=== PATIENT | male | born 1975 | race Two or more races ===

== ENCOUNTER 2018-11-26 08:31 | Emergency (ER) | payer SELFPAY ==
[~2018-11-26] VITALS: Ht 172.7 cm; Wt 72.6 kg
[2018-11-26 08:37] VITALS: BP 168/113
--- NOTE | 2018-11-26 08:37 | NUR ---
ED Nurse Note: Pt brought in by EMS picked up from a bus. Per EMS pt states that he overdosed with PCP. Unable to asess if he is SI or wants to hurt others. Pt is uncooperative and not answering directly to questions being asked to him. Pt came in with hand cuffs but [employer] states pt is not on 5150 Hold. AAO x 1 (name) and not following commands wth no respiratory distress. Sinus tach on night monitor 120-135 HR.
--- NOTE | 2018-11-26 08:40 | NUR ---
ED Nurse Note: Belongings placed on psych locker #3.
[2018-11-26] MEDS ORDERED: LORazepam Inj 2mg/ml 1ml IV ONE (08:45)
--- NOTE | 2018-11-26 08:54 | Emergency Room Report ---
History of Present Illness General Chief Complaint: Substance Abuse Source: EMS Present Illness HPI Disclaimer: Please note that this report is being documented using DRAGON technology. This can lead to erroneous entry secondary to incorrect interpretation by the dictating instrument. HPI: 43-year-old male with unknown medical history presents for evaluation by law enforcement of aggressive behavior. The patient is brought in on restraints and is agitated. Per fire and EMS, first responders were waved down by high school business teacher as the patient was aggressive and acting erratically on the bus. He admitted to smoking crystal meth approximately 2 hours prior to law enforcement and to me. He currently denies any chest pain, shortness of breath , abdominal pain or headache. He is aware that he is in a hospital but cannot provide any significant insight into his past medical history, current medications he might be taking or anything other than smoking crystal meth prior to arrival. PMH: Could not obtain PSH: Could not obtain Allergies: Could not obtain Social Hx: Substance abuse, crystal meth Allergies: Coded Allergies: No Known Allergies (Unverified , 11/26/18) Nursing Documentation-PMH Past Medical History: No Stated History Review of Systems All Other Systems: limited - Due to clinical condition Physical Exam Vital Signs Date Time Temp Pulse Resp B/P (MAP) Pulse Ox O2 Delivery O2 Flow Rate FiO2 11/26/18 08:27 99.3 137 20 134/85 (101) 99 Room Air General: Awake, agitated, tremulous, handcuffs to gurney HEENT: Normocephalic, atraumatic. There are no scalp or face hematomas, lacerations or abrasions. No tenderness or soft tissue swelling over the facial bones. EOMI. PERRLA. No septal hematoma. No malocclusion Neck: Supple, trachea midline. Arrives without cervical collar Chest Wall: No tenderness, no deformity, no crepitus CV: Tachycardic. S1 and S2 normal. No murmur appreciated Resp: Normal work of breathing. No cough, wheezing or crackles appreciated Abd: Soft, nontender, nondistended Skin: Intact. No abrasions, laceration or rash over the exposed skin MSK: Normal tone and bulk. No obvious deformity. Moving all extremities. Ambulating without difficulty. Neuro: Awake and alert. Agitated and tremulous. Striking out at staff. Tangential thoughts. Moving all extremities. Procedures Critical Care Time Critical Care Time Total critical care time: Approximately 45 minutes Due to a high probability of clinically significant, life threatening deterioration, the patient required the highest level of preparedness to intervene emergently and I personally spent this critical care time directly and personally managing the patient. This critical care time included obtaining a history, examining the patient, pulse oximetry, ordering and reviewing studies , ordering treatments, evaluating response to treatment and updating management plan as needed, frequent reassessment and discussion with other providers as well as arranging for ultimate disposition. This critical to care time was performed to assess and manage the high probability of life-threatening deterioration that could result in multiorgan failure. This critical care time is separate from the separately billable procedures and treating other patients. Medical Decision Making Restraint Attestation I, Kaleb Meraz MD, have personally evaluated this patient. Laboratory tests have been reviewed and addressed accordingly. The patient is deemed to present a danger to themselves and/or others. This is based on the exam, history ( provided by patient, EMS/[employer]) and observed or reported behavior. Attempts for non-invasive measures have been considered and/or attempted, however, have been futile. It is in the best interest of the nursing staff, the patient, and others involved in this patient's care that behavioral restraints be applied. Patient evaluation reveals the following: Delirium, combativeness, danger to staff Diagnostic Impression: Primary Impression: Substance abuse Additional Impressions: Delirium Agitation ER Course 43-year-old male brought in for medical evaluation by emergency services for erratic behavior on the bus. The patient admits to smoking crystal meth earlier today. Differential includes but is not limited to substance abuse, infection, electrolyte abnormality. We will start broad metabolic infectious and tox work-up. Patient did require restraints on arrival but will reevaluate shortly after giving 2 mg of Ativan for sedation. Laboratory Tests Test 11/26/18 08:45 11/26/18 08:55 White Blood Count 15.7 K/UL (4.8-10.8) H Red Blood Count 5.01 M/UL (4.70-6.10) Hemoglobin 14.4 G/DL (14.2-18.0) Hematocrit 42.7 % (42.0-52.0) Mean Corpuscular Volume 85 FL (80-99) Mean Corpuscular Hemoglobin 28.7 PG (27.0-31.0) Mean Corpuscular Hemoglobin Concent 33.7 G/DL (32.0-36.0) Red Cell Distribution Width 12.1 % (11.6-14.8) Platelet Count 223 K/UL (150-450) Mean Platelet Volume 6.4 FL (6.5-10.1) L Neutrophils (%) (Auto) % (45.0-75.0) Lymphocytes (%) (Auto) % (20.0-45.0) Monocytes (%) (Auto) % (1.0-10.0) Eosinophils (%) (Auto) % (0.0-3.0) Basophils (%) (Auto) % (0.0-2.0) Differential Total Cells Counted 100 Neutrophils % (Manual) 86 % (45-75) H Lymphocytes % (Manual) 8 % (20-45) L Monocytes % (Manual) 6 % (1-10) Eosinophils % (Manual) 0 % (0-3) Basophils % (Manual) 0 % (0-2) Band Neutrophils 0 % (0-8) Platelet Estimate Adequate Platelet Morphology Normal Sodium Level 145 MMOL/L (136-145) Potassium Level 3.1 MMOL/L (3.5-5.1) L Chloride Level 105 MMOL/L (98-107) Carbon Dioxide Level 26 MMOL/L (21-32) Anion Gap 14 mmol/L (5-15) Blood Urea Nitrogen 20 mg/dL (7-18) H Creatinine 1.4 MG/DL (0.55-1.30) H Estimate Glomerular Filtration Rate 55.8 mL/min (>60) Glucose Level 162 MG/DL (74-106) H Calcium Level 9.8 MG/DL (8.5-10.1) Total Bilirubin 1.3 MG/DL (0.2-1.0) H Direct Bilirubin 0.2 MG/DL (0.0-0.3) Aspartate Amino Transferase (AST) 67 U/L (15-37) H Alanine Aminotransferase (ALT) 72 U/L (12-78) Alkaline Phosphatase 90 U/L (46-116) Total Creatine Kinase 1488 U/L (26-308) H Creatine Kinase MB 17.0 NG/ML (0.0-3.6) H Creatine Kinase MB Relative Index 1.1 Troponin I 0.015 ng/mL (0.000-0.056) Total Protein 7.9 G/DL (6.4-8.2) Albumin 4.0 G/DL (3.4-5.0) Globulin 3.9 g/dL Albumin/Globulin Ratio 1.0 (1.0-2.7) Salicylates Level 2.3 ug/mL (2.8-20) L Acetaminophen Level < 2 MCG/ML (10-30) L Serum Alcohol < 3 mg/dL Urine Opiates Screen Negative (NEGATIVE) Urine Barbiturates Screen Negative (NEGATIVE) Phencyclidine (PCP) Screen Positive (NEGATIVE) H Urine Amphetamines Screen Positive (NEGATIVE) H Urine Benzodiazepines Screen Negative (NEGATIVE) Urine Cocaine Screen Positive (NEGATIVE) H Urine Marijuana (THC) Screen Positive (NEGATIVE) H EKG Diagnostic Results EKG Time: 08:49 Rhythm: NSR ST Segments: no acute changes Other Impression Sinus tachycardia, normal intervals, rightward axis, no ischemic changes Rhythm Strip Diag. Results Rhythm Strip Time: 08:49 EP Interpretation: yes Rate: 130s Other Impression Sinus tachycardia Reevaluation Time: 14:00 Last Vital Signs Date Time Temp Pulse Resp B/P (MAP) Pulse Ox O2 Delivery O2 Flow Rate FiO2 11/26/18 08:27 99.3 137 20 134/85 (101) 99 Room Air Status: improved Reevaluation Impression Show an elevated white count at 15.7, low potassium at 3.1, elevated creatinine of 1.4 and elevated CK at 1488. Troponin was within normal limits. Patient's tox screen showed positive for PCP, amphetamines, cocaine, marijuana. He received 2 mg of Ativan on arrival and was taken out of restraints by police. He did not require any further restraints while in the emergency department. He has been sleeping comfortably and arouses to minor stimuli though is not yet ambulatory and will need further metabolization. Once he is awake, can replete potassium orally. He has received 2 L IV fluids. He will be reevaluated by the oncoming physician however if improved I believe he would be appropriate for discharge and outpatient follow-up Signed Out To: Dr. Wei Green Potassium Chloride (K-Tab ER) 20 Meq Tablet.er 20 MEQ PO DAILY for 5 Days, #5 TAB Prov: Kaleb Meraz MD 11/26/18 Kaleb Meraz MD Nov 26, 2018 08:54
[2018-11-26 09:05] LABS: HEMATOCRIT 42.7 % (42.0-52.0); HEMOGLOBIN 14.4 G/DL (14.2-18.0); MEAN CORPUSCULAR VOLUME 85 FL (80-99); PLATELET COUNT 223 K/UL (150-450); RED BLOOD COUNT 5.01 M/UL (4.70-6.10); RED CELL DISTRIBUTION WIDTH 12.1 % (11.6-14.8); WHITE BLOOD COUNT 15.7 K/UL (4.8-10.8)
[2018-11-26 09:15] LABS: ANION GAP 14 mmol/L (5-15); BLOOD UREA NITROGEN 20 mg/dL (7-18); CALCIUM 9.8 MG/DL (8.5-10.1); CARBON DIOXIDE 26 MMOL/L (21-32); CHLORIDE 105 MMOL/L (98-107); CREATININE 1.4 MG/DL (0.55-1.30); POTASSIUM 3.1 MMOL/L (3.5-5.1); SODIUM 145 MMOL/L (136-145)
[2018-11-26 09:28] LABS: ALANINE AMINOTRANSFERASE 72 U/L (12-78); ALKALINE PHOSPHATASE 90 U/L (46-116); ASPARTATE AMINO TRANSFERASE 67 U/L (15-37); BILIRUBIN,TOTAL 1.3 MG/DL (0.2-1.0); CREATINE KINASE 1488 U/L (26-308)
[2018-11-26 09:42] LABS: BILIRUBIN,DIRECT 0.2 MG/DL (0.0-0.3)
--- NOTE | 2018-11-26 10:22 | NUR ---
ED Nurse Note: Pt sleeping at this time with no distress. IV fluids done. HR 108.
[2018-11-26 10:23] VITALS: BP 153/100
[2018-11-26 12:30] VITALS: BP 134/70
--- NOTE | 2018-11-26 13:27 | NUR ---
ED Nurse Note: Pt resting on bed with no distress. No tremors at this time. Sinus tach on electronic device monitor HR 74. Awake but still uncooperative.
--- NOTE | 2018-11-26 14:00 | NUR ---
ED Nurse Note: Lunch tray provided. Pt still sleeping. VSS.
[2018-11-26] MEDS ORDERED: K-TAB ER20 MEQ PO (14:28)
[2018-11-26 14:30] VITALS: BP 128/73
--- NOTE | 2018-11-26 17:58 | NUR ---
HAND-OFF: Report given to Mayra WINTER.
--- NOTE | 2018-11-26 19:02 | NUR ---
ED Nurse Note:pt. is sleeping no signs of distress noted
[2018-11-26 20:05] VITALS: BP 126/76
--- NOTE | 2018-11-26 20:05 | NUR ---
ER Nurse Note: Pt asleep, no signs of distress., RA. SLIV LT hand; patent with kerlix. All safety measures met; will continue to montior.
[2018-11-26 22:25] VITALS: BP 132/74
--- NOTE | 2018-11-26 22:25 | NUR ---
ER Nurse Note: Pt seen, treated, medically cleared for discharge by ERMD. Discharge instuctions given with repeat verbalization by pt. Emphasized to follow up with primay care provider; take whole course of medication. Explained each medication. All orders completed per ERMD orders. Pt a&ox4, VSS, no signs of distress. ID band removed. All belongings returned. All questions answered per pt's questions. Pt left with all belongings, left with own transportation.
== END 2018-11-26 22:25 | disposition home or self-care (01) ==
LOC: EDBD 08:31 → EMR 08:56
DX: R41.0 Disorientation, unspecified (principal); R45.1 Restlessness and agitation; F15.10 Other stimulant abuse, uncomplicated; Z78.1 Physical restraint status; F19.10 Other psychoactive substance abuse, uncomplicated
CPT/HCPCS: 36415; 80053; 80307; 82248; 82550; 82553; 84484; 85007; 85025; 93005; 96361; 96374; 99291; G0480; 80329; J8499